=== PATIENT | male | born 1995 | race Caucasian/White ===

== ENCOUNTER 2025-06-04 11:36 | Emergency (ER) | payer SELFPAY ==
[2025-06-04 11:37] VITALS: BP 153/98
[2025-06-04 12:31] LABS: ALT (SGPT) 480 U/L (0-50); AST (SGOT) 253 U/L (17-59); Albumin 4.6 g/dl (3.5-5.0); Alkaline Phosphatase 307 U/L (38-126); Blood Urea Nitrogen 13 mg/dl (9-20); Calcium 9.0 mg/dl (8.4-10.2); Carbon Dioxide 23 mmol/L (22-30); Chloride 99 mmol/L (98-107); Glucose 106 mg/dl (70-99); Potassium 4.3 mmol/L (3.5-5.1); Sodium 132 mmol/L (135-145); Total Protein 9.1 g/dl (6.3-8.2); eGFR > 60.00
[2025-06-04 12:33] LABS: COVID-19 Antigen Negative (Negative)
[2025-06-04 12:35] LABS: Hematocrit 48.3 % (39.0-52.0); Hemoglobin 16.6 g/dL (13.0-18.0); Mean Corp Hgb Conc. 34.4 g/dL (33.0-37.0); Mean Corpuscular Volume 84.4 fL (80.0-94.0); Platelet Count 146 10^3/uL (130-400); Red Cell Dist. Width 12.5 % (11.5-14.5)
[2025-06-04 13:18] LABS: Platelets Checked Yes
[2025-06-04 13:19] LABS: Normal RBC Morphology Yes; Total Cells Counted 100
[2025-06-04 13:20] LABS: Smudge Cells Moderate
[2025-06-04 13:24] LABS: Absolute Neutrophils -Man Diff 4.4 10^3/uL (1.4-6.5)
[2025-06-04] MEDS: NSS 1000 IV (13:40)
--- NOTE | 2025-06-04 13:59 | ED.GENMED ---
History of Present Illness
General
Chief Complaint: Cold/Flu/URI Symptoms
Source: patient
Exam Limitations: none
Time Seen by Provider: 06/04/25 12:31
Nursing documentation reviewed up to this point in time: agreed with
History of Present Illness
History of Present Illness:
29-year-old male w h/o tonsillectomy presents with swollen lymph nodes on the right side of the neck, which began 5 days ago, and recently noticed small one on the left side as well. The patient reports a fever with a maximum temperature of 102�F
two nights ago and associated night sweats that also began two nights ago. He describes feeling unwell for about a week, with his symptoms initially beginning on the right side of neck and today, mildly on left side of neck. He consulted a doctor
about a month ago for a reactive lymph node above his left collarbone, received antibiotics, with improvement of the size of lymph node. He also experiences nausea without vomiting, decreased appetite, and few small diarrheal stools past week.
Denies any chest pain, difficulty breathing, or abdominal pain but reports dark urine likely due to decreased fluid intake. He notes a mild sore throat described as an annoyance rather than painful swallowing. Social history includes occasional
marijuana use about every other day. 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 He recently visited Dr. Huerta at [facility], who advised him to come here today.
Past History
Past History
ED Past Medical History: None
ED Past Surgical History: Tonsilectomy
Social History
Alcohol: None
Drug: Marijuana
Personal: Single
Living: with roommate
Employment: Employed
Review of Systems
Review of Systems
Allergies reviewed?: Yes
All Other Systems: ROS reviewed and negative except as documented in HPI and ROS
Phy Exam
Physical Exam
Physical Exam:
GENERAL: No acute distress. A&Ox3.
CONSTITUTIONAL: Afebrile.
EYES: clear, conjunctivae normal
Neck: Right anterior cervical palpable pea sized tender nodes, mild tenderness right sub mandibular area with no palpable nodes, mild tenderness left sub mandibular area with no palpable nodes. Neck supple with full ROM.
ENMT: moist mucus membranes, Pharynx nl, TMS normal
RESPIRATORY: Regular respirations, nonlabored, lungs clear.
CARDIOVASCULAR: Regular rate and rhythm, no murmurs, no rubs.
GI: Soft, nontender, normal BS
MUSCULOSKELETAL: Moves with ease. Well perfused.
SKIN: Warm, dry, pink
PSYCH: Normal mood and affect. Well kept, interactive and appropriate
NEUROLOGIC: Awake, alert and oriented. No focal neurological deficits
Sepsis
Sepsis Screening
Sepsis Assessment: Sepsis Ruled Out
Sepsis Screen
Sepsis Screen: Sepsis Ruled Out
Date: 06/04/25
Time: 19:46
Course
Orders/Labs/Results
Orders:
Orders
06/04/25 11:50
COVID-19 Antigen Urgent
Source: Nasal Swab
Complete Blood Count/With Diff Urgent
Comprehensive Metabolic Panel Urgent
Lactic Acid Q4H
Comment: ON ICE, CANCEL 2ND ORDER IF FIRST LACTIC ACID LEVEL <2
Manual Differential Urgent
Monotest Urgent
Comment: ADD ON
Influenza A+B Rapid Molecular Urgent
RHIANNON Source: Nasal Swab
Specimen Description:
06/04/25 13:09
Add On- LAB Urgent
Tests Added?: monotest
06/04/25 13:14
0.9% Sodium Chloride 1000 ml [Nss] 1,000 ml IV BOLUS
Abnormal Lab Results
06/04/25
11:50
WBC 23.6 H 10^3/uL
(4.8-10.8)
MPV 11.0 H fL
(7.4-10.4)
Segmented Neutrophils 19 L %
(42-75)
Sodium 132 L mmol/L
(135-145)
Glucose 106 H mg/dl
(70-99)
Lactic Acid 2.1 H mmol/L
(0.7-2.0)
Total Bilirubin 1.9 H mg/dl
(0.2-1.3)
AST 253 H U/L
(17-59)
ALT 480 H U/L
(0-50)
Alkaline Phosphatase 307 H U/L
(38-126)
Total Protein 9.1 H g/dl
(6.3-8.2)
Monoscreen Positive A
(Negative)
06/04/25 11:50
06/04/25 11:50
Vital Signs
Initial and Last Documented VS:
Initial Vital Signs
Temp Pulse Resp BP Pulse Ox
98.2 F 124 18 153/98 98
06/04/25 11:37 06/04/25 11:37 06/04/25 11:37 06/04/25 11:37 06/04/25 11:37
Last Documented Vital Signs
Temp Pulse Resp BP Pulse Ox
98.2 F 124 18 153/98 98
06/04/25 11:37 06/04/25 11:37 06/04/25 11:37 06/04/25 11:37 06/04/25 14:06
MDM/Problems Addressed
Differential Diagnosis Includes:
mononucleosis, CMV infection, strep throat, Viral URI, leukemia
MDM/Problems Addressed:
29-year-old male w h/o tonsillectomy presents with swollen lymph nodes on the right side of the neck, which began 65 days ago, and recently noticed small one on the left side as well. The patient reports a fever with a maximum temperature of 102�F
two nights ago and associated night sweats that also began two nights ago. He describes feeling unwell for about a week, with his symptoms initially beginning on the right side of neck and today, mildly on left side of neck. He consulted a doctor
about a month ago for a reactive lymph node above his left collarbone, received antibiotics, with improvement of the size of lymph node. He also experiences nausea without vomiting, decreased appetite, and few small diarrheal stools past week.
Denies any chest pain, difficulty breathing, or abdominal pain but reports dark urine likely due to decreased fluid intake. He notes a mild sore throat described as an annoyance rather than painful swallowing. Social history includes occasional
marijuana use about every other day. 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 He recently visited Dr. Huerta at [facility], who advised him to come here today.
Afebrile, NAD, speaking and swallowing well, no nuchal rigidity
Pt totally non toxic appearing.
No meningeal signs
No pain with swallowing, lymph node tenderness is bilateral, do not suspect retropharyngeal abscess
CBC: WBC 23.6 with low neutrophils (most likely reactive to acute infection)
CMP: barnard transaminitis (reactive to infection)
Lactic #1 2.1
2:50 PM:
Monotest is positive
Lab abnormalities are consistent with reactive to mono
Stable for discharge
*Pulse Oximetry
SaO2: 98
Oxygen Mode of Delivery: Room air
Patient hypoxic: no
*Critical Care Note
Total Time (30-74mins, 75-104mins- exclusive of procedures): Not Applicable
ED Attending Note
-
Portions of this chart may have been created with voice recognition software.� Occasional wrong word or��sound alike� substitutions may have occurred due to the inherent limitations of voice recognition software.
Discharge Plan
Departure
Patient Disposition: Home (Routine Discharge)
Date of Disposition: 06/04/25
Time of Disposition: 14:56
Patient with high blood pressure during this ER visit?: No
Condition: Good
Discharge Problem:
Mononucleosis
Instructions: Fever, Adult (DC), Mononucleosis
Referrals:
Carlos Alberto Tovar DO [Family Provider, Family Practice] - Call in 1-3 days for appt
Activity Restrictions/Additional Instructions:
As we discussed, you have mononucleosis.
This is the cause of all your lab abnormalities, your elevated white blood cells, your swollen lymph glands.
Drink plenty of fluid, avoid any contact sports or impact to the back or the abdomen for the next 6 weeks.
Call to make an appointment with your doctor to have your lab work repeated in 2-3 weeks
Tylenol ibuprofen as needed for fever
Return here immediately for significant abdominal pain
Interventions
Interventions:
*Risk Screen - Suicide Last Done: 06/04/25 11:37
*General Assessment Last Done: 06/04/25 11:37
*Neglect/Abuse Screening Last Done: 06/04/25 11:37
*Nursing Disposition Last Done: 06/04/25 15:21
Discharge Date and Time
Discharge Date/Time: 06/04/25 15:22
Print Language: ESTONIAN
== END 2025-06-04 15:22 | disposition home or self-care (01) ==
LOC: EMR 11:36
PROVIDERS: EMERGENCY PHYSICIAN Emergency Medicine; FAMILY PHYSICIAN Family Medicine
DX: B27.90 Infectious mononucleosis, unspecified without complication (principal); F12.90 Cannabis use, unspecified, uncomplicated
CPT/HCPCS: 99284; 96360; 80053; 83605; 85025; 86308; 87502; 87811